=== PATIENT | male | born 1990 | race Caucasian/White ===

== ENCOUNTER 2020-01-10 11:15 | Emergency (ER) | payer OTHER, SELFPAY ==
--- NOTE | ~2020-01-10 | CT_ITS ---
EXAMINATION: CT abdomen pelvis wo con DATE: 01/10/2020 11:51 INDICATION: Left flank pain TECHNIQUE: Computed tomography (CT) of the abdomen and pelvis was performed without intravenous contr ast. The dose-length product was 758.48 mGy-cm. Automated exposure control and iterative reconstructi on technique were employed. COMPARISON: KUB dated 01/10/2020. FINDINGS: Bowel gas pattern is nonobstructive. There are small nodules in the right middle lobe, ema uring 4 mm, image 6 and right lower lobe adjacent to the fissure measuring 3.5 mm. There is a 3 mm le ft lower lobe nodule. Heart size normal. Fatty infiltration of the liver. The spleen, pancreas, adrenal glands are unremarkable. There is a 7 mm proximal left ureteral stone with moderate hydronephrosis. There is mild left perinephric and crescencio ureteral edema. There are nonobstructing right renal stones. Bladder is decompressed. No bladder wall thickening. Normal appendix. No abnormal pelvic masses or fluid collections. No free air or free fluid. No acute osseous abnormali ty. IMPRESSION: 1. Proximal left ureteral stone measuring 7 mm L4 level with moderate hydronephrosis. 2: Nonobstructing right nephrolithiasis. 3: Pulmonary nodules of the lung bases, largest measuring 4 mm, likely benign. Follow-up low dose CT chest in 12 months recommended. Reviewed, dictated and finalized at location A. ISTRY TEACHER IMPRESSION: 1. Proximal left ureteral stone measuring 7 mm L4 level with moderate hydroneph rosis. 2: Nonobstructing right nephrolithiasis. 3: Pulmonary nodules of the lung bases, largest measuring 4 mm, likely benign. Follow-up low dose CT chest in 12 months recommended.
--- NOTE | ~2020-01-10 | XR_ITS ---
XR abdomen/kub 1V 01/10/2020 11:59 Indication: Left flank pain Procedure: KUB Comparison: No prior studies for comparison. Findings: There is a proximal left ureteral stone at the L4 level measuring 8 mm craniocaudal. There are right renal stones. Bowel pattern is nonobstructive. There are pelvic phleboliths. Impression: 1: Left ureteral and right renal stones. Reviewed, dictated and finalized at location A. SOFTWARE ENGINEER Impression: 1: Left ureteral and right renal stones.
[2020-01-10 11:28] VITALS: BP 148/72; PULSE 68; RESP 20; TEMP 37.1; O2SAT 100
[2020-01-10 11:53] LABS: Basophils Absolute Auto 0.1 K/mm3 (0.0-0.1); Eosinophils Absolute Auto 0.2 K/mm3 (0-0.3); Eosinophils Percent Auto 2.5 % (0-4.4); Hematocrit 46.1 % (42.0-52.0); Hemoglobin 16.1 g/dL (14.0-18.0); Immature Granulocyte Absolute 0.05 K/mm3 (0.00-0.031); Immature Granulocyte Percent A 0.6 % (0-0.5); Lymphocytes Absolute Auto 2.37 K/mm3 (0.9-3.2); Lymphocytes Percent Auto 28.5 % (18.3-44.2); Mean Corpuscular HGB Conc 34.9 g/dl (32-36); Mean Corpuscular Volume 85.8 fl (80-100); Mean Platelet Volume 10.8 fl (7.4-10.4); Monocytes Absolute Auto 0.7 K/mm3 (0.1-0.6); Monocytes Percent Auto 7.9 % (2.6-8.5); Neutrophils Percent Auto 59.5 % (45.5-73.1); Platelet Count Result 228 k/mm3 (150-375); Red Blood Count 5.37 M/mm3 (4.6-6.20); Red Cell Distribution Width 12.8 % (11.5-14.5); White Blood Count 8.3 K/mm3 (4.5-10.0)
[2020-01-10 12:05] LABS: Add Urine Microscopic? YES; Appearance Urine Clear (Clear); Bilirubin Urine Negative (Negative); Blood Urine 1+ (Negative); Color Urine Yellow (Yellow); Glucose Urine UA Negative (Negative); Ketones Urine Negative (Negative); Leukocyte Esterase Ur Trace LEU/UL (Negative); Mucus Urine Heavy /lpf; Nitrate Urine Negative (Negative); Protein Urine 1+ mg/dL (Negative); Specific Grav Ur 1.024 (1.001-1.035); Squamous Epithelial Cell Urine Rare /hpf (Few); Urobilinogen Urine Negative mg/dL (<2.0); WBC Urine 16-20 /hpf
[2020-01-10 12:18] LABS: Alanine Aminotransferase 24 U/L (4-50); Albumin Level 4.6 g/dL (3.5-5.1); Alkaline Phosphatase 56 U/L (38-126); Anion Gap 9 mmol/L (8-16); Aspartate Amino Transferase 29 U/L (17-59); Blood Urea Nitrogen 18 mg/dL (9-20); Calcium 9.7 mg/dL (8.4-10.2); Carbon Dioxide 27 mmol/L (22-30); Chloride 102 mmol/L (98-107); Estimated CRCL calculation 172 ml/min; Estimated Glomerular Filt Rate > 60; Glucose 103 mg/dL (75-110); Potassium 4.3 mmol/L (3.4-5.0); Sodium 138 mmol/L (137-145)
--- NOTE | 2020-01-10 12:46 | ED.GENADULT ---
HPI - General Adult General Chief complaint: Urogenital-Male <Praveen Driscoll PA-C - Last Filed: 01/10/20 13:42> Stated complaint: Kidney Stones <Praveen Driscoll PA-C - Last Filed: 01/10/20 13:42> Time Seen by Provider: 01/10/20 11:28 <Praveen Driscoll PA-C - Last Filed: 01/10/20 13:42> Source: patient and family <Praveen Driscoll PA-C - Last Filed: 01/10/20 13:42> Mode of arrival: ambulatory <Praveen Driscoll PA-C - Last Filed: 01/10/20 13:42> Limitations: no limitations <Praveen Driscoll PA-C - Last Filed: 01/10/20 13:42> History of Present Illness HPI narrative: Patient is a 29-year-old male who presents to emergency department for evaluation of left-sided flank pain that began over the weekend tried [id number] medications as well as prescriptions with no improvement notes he has felt nauseous with chills and sweats. Patient notes he may have had some blood in his urine a few days ago patient on arrival appears uncomfortable but in no distress <Praveen Driscoll PA-C - Last Filed: 01/10/20 13:42> Related Data Allergies/adverse reactions: Allergies Allergy/AdvReac Type Severity Reaction Status Date / Time No Known Allergies Allergy Verified 01/10/20 12:50 <Praveen Driscoll PA-C - Last Filed: 01/10/20 13:42> Review of Systems Review of Systems: All systems reviewed & are unremarkable except as noted in HPI and below <Praveen Driscoll PA-C - Last Filed: 01/10/20 13:42> [facility] Past Medical History Medical History: Medical History (Updated 01/10/20 @ 13:40 by Praveen Driscoll PA-C) Urolithiasis <Praveen Driscoll PA-C - Last Filed: 01/10/20 13:42> Surgical History Surgical History: Surgical History (Updated 01/10/20 @ 12:48 by Praveen Driscoll PA-C) H/O lithotripsy <Praveen Driscoll PA-C - Last Filed: 01/10/20 13:42> Social History Social History: Social History Smoking status: Never smoker <Praveen Driscoll PA-C - Last Filed: 01/10/20 13:42> Exam Narrative: Exam Narrative: GENERAL: Well-appearing, well-nourished, uncomfortable and in no acute distress. HEAD: Normocephalic, atraumatic. EYES: PERRLA and EOMI. ENT: Nares clear, no rhinorrhea or epistaxis. Mucous membranes moist. ABDOMEN: Soft, left flank tenderness, nondistended EXTREMITIES: Normal range of motion. No edema. SKIN: Warm, dry, no rash. NEURO: No focal deficits. Alert and oriented x3. PSYCH: Normal mood and affect. <Praveen Driscoll PA-C - Last Filed: 01/10/20 13:42> Course Course Emergency Course: Patient with urolithiasis in the room pain well controlled given medications to include fluids and pain medications with improvement patient is noting marked improvement feels comfortable to go home is aware of the recommendations and discussion with urology patient also provided with reasons to return <Praveen Driscoll PA-C - Last Filed: 01/10/20 13:42> Consultations Consultation #1: Discussed case with urology practitioner Natalia who will follow the patient on outpatient basis <Praveen Driscoll PA-C - Last Filed: 01/10/20 13:42> Date: 01/10/20 <Praveen Driscoll PA-C - Last Filed: 01/10/20 13:42> Time: 13:42 <Praveen Driscoll PA-C - Last Filed: 01/10/20 13:42> Vital Signs Vital signs: Vital Signs Temperature 37.1 C 01/10/20 11:28 Pulse Rate 68 01/10/20 11:28 Respiratory Rate 20 01/10/20 11:28 Blood Pressure 148/72 H 01/10/20 11:28 Pulse Oximetry 100 01/10/20 11:28 Temperature 37.1 C 01/10/20 11:28 Pulse Rate 62 01/10/20 12:52 Respiratory Rate 18 01/10/20 12:52 Blood Pressure 123/69 01/10/20 12:52 Pulse Oximetry 99 01/10/20 12:52 <Praveen Driscoll PA-C - Last Filed: 01/10/20 13:42> Vital Signs Temperature 37.1 C 01/10/20 11:28 Pulse Rate 68 01/10/20 11:28 Respiratory Rate 20 01/10/20 11:28 Blood Pre
[2020-01-10] MEDS: MORPHINE SULFATE (*CRX) 4 MG/ML INJ IV PUSH (12:47)
[2020-01-10] MEDS: SODIUM CHLORIDE 0.9% IV 1,000 ML 999 ML IV CONT ×2 (12:47→13:30)
[2020-01-10] MEDS: ONDANSETRON INJ 4 MG/2 ML VIAL IV PUSH (12:48)
[2020-01-10 12:52] VITALS: BP 123/69; PULSE 62; RESP 18; O2SAT 99
== END 2020-01-10 14:18 | disposition home or self-care (01) ==
PROVIDERS: Emergency Medicine Emergency Medical Services; Emergency Provider Emergency Medicine
DX: N13.2 Hydronephrosis with renal and ureteral calculous obstruction (principal); R91.8 Other nonspecific abnormal finding of lung field; Z87.442 Personal history of urinary calculi
CPT/HCPCS: 36415; 74018; 74176; 80053; 81001; 85025; 87086; 87088; 96361; 96374; 96375; 99284; J2270; J2405; J7030